=== PATIENT | female | born 1935 | race Caucasian/White ===

== ENCOUNTER → 2018-09-09 | Outpatient (CLI) | payer OTHER ==
[~2018-09-09] MED LIST: AMBIEN 10 MG TA10 MG PO; AMBIEN 5 MG TABL5 M1 PO; CARTIA XT120 M1 PO; CLONAZEPAM 1 MG1 M1 PO; EFFEXOR XR75 MG PO; FISH OIL 1,001000 M1 PO; FISH OIL 1,001000 M2 PO; GLUCOSAMINE HC500 MG PO; IRON325 PO; KLONOPIN0.5 MG PO; LEVAQUIN 500 M500 M2 PO; LEVOTHYROXINE50 MCG PO; MAGNESIUM 300300 MG PO; MAGNESIUM OXID400 MG PO; MIRALAX17 GM PO; MULTIVITAMINS PO; TYLENOL325 MG PO; UNICOMPLEX M TA1 TA1 PO; VENLAFAXIN75 MG/1 T2 PO
== END ==
LOC: M.ULTRA 14:30
DX: N39.0 Urinary tract infection, site not specified (principal); Z88.2 Allergy status to sulfonamides; Z88.0 Allergy status to penicillin